=== PATIENT | female | born 1995 | race Caucasian/White ===

== ENCOUNTER 2016-06-01 01:46 | Emergency (ER) | payer OTHER | END 2016-06-01 03:04 | disposition home or self-care (01) | LOC: FER 01:46 | DX: H66.93 Otitis media, unspecified, bilateral (principal); J02.9 Acute pharyngitis, unspecified; F17.200 Nicotine dependence, unspecified, uncomplicated | CPT/HCPCS: 87450; 87804; 87899 ==

== ENCOUNTER 2016-08-10 10:16 | Emergency (ER) | payer OTHER ==
[2016-08-10 10:35] LABS: BILIRUBIN 1+ mg/dL (NEGATIVE); BLOOD NEGATIVE Ery/uL (NEGATIVE); CLARITY CLEAR (CLEAR); COLOR YELLOW (YELLOW); GLUCOSE (U) NORMAL (NORMAL); KETONE (U) NEGATIVE (NEGATIVE); LEUKOCYTES 1+ Leu/uL (NEGATIVE); NITRITE NEGATIVE (NEGATIVE); PROTEIN 1+ mg/dL (NEGATIVE); SPECIFIC GRAVITY 1.025 (1.001-1.030); pH 5.5 (5.0-9.0)
[2016-08-10 10:51] LABS: BACTERIA 2+; URINARY RBC RARE
[2016-08-10 10:54] LABS: BASOPHIL 0.4 % (0-2); EOSINOPHIL 0.6 % (0-5); HCT 36.9 % (37.0-47.0); LYMPHOCYTE 7.1 % (15-48); MCH 29.8 pg (25.0-31.0); MCHC 35.2 g/dL (32.0-36.0); MCV 84.6 fL (78.0-100.0); MONOCYTE 7.4 % (0-12); MPV 12.6 fL (6.0-9.5); NEUTROPHIL 84.5 % (41-80); PLT 115 K/uL (150-400); RBC 4.36 M/uL (4.20-5.40); RDW 12.4 % (11.5-14.0); WBC 7.7 K/uL (4.0-10.5)
== END 2016-08-10 11:38 | disposition home or self-care (01) ==
LOC: FER 10:16
PROVIDERS: Nurse Practitioner
DX: N30.00 Acute cystitis without hematuria (principal); F17.210 Nicotine dependence, cigarettes, uncomplicated; Z90.09 Acquired absence of other part of head and neck
CPT/HCPCS: 36415; 81001; 85025; 86308; 87804; 87899; J1885

== ENCOUNTER 2020-06-21 05:59 | Emergency (ER) | payer OTHER ==
[2020-06-21 06:55] LABS: BILIRUBIN NEGATIVE (NEGATIVE); BLOOD 3+ Ery/uL (NEGATIVE); CLARITY CLOUDY (CLEAR); COLOR RED (YELLOW); GLUCOSE (U) NORMAL (NORMAL); LEUKOCYTES NEGATIVE Leu/uL (NEGATIVE); NITRITE NEGATIVE (NEGATIVE); PROTEIN 1+ mg/dL (NEGATIVE); UROBILINOGEN 0.2 mg/dL (0.2-1.0); pH 7.5 (5.0-9.0)
[2020-06-21 07:00] LABS: BASOPHIL 0 % (0-2); EOSINOPHIL 0.2 % (0-5); HCT 38.9 % (37.0-47.0); HGB 13.4 g/dl (12.5-16.0); LYMPHOCYTE 28.9 % (15-48); MCH 29.1 pg (25.0-31.0); MCHC 34.4 g/dL (32.0-36.0); MCV 84.6 fL (78.0-100.0); MONOCYTE 9.7 % (0-12); MPV 12.2 fL (6.0-9.5); NRBC 0; PLT 175 K/uL (150-400); WBC 5.6 K/uL (4.0-10.5)
[2020-06-21 07:09] LABS: URINARY RBC TNTC
[2020-06-21 07:10] LABS: BACTERIA TRACE
[2020-06-21 07:30] LABS: ALBUMIN 3.8 g/dL (3.4-5.0); BILIRUBIN - TOTAL 0.4 mg/dL (0.2-1.0); BUN/CREAT RATIO (CALC) 25.9 RATIO; CREATININE 0.58 mg/dL (0.51-0.95); GLOBULIN (CALCULATION) 3.4 g/dL; POTASSIUM 4.1 mmol/L (3.5-5.1); TOTAL PROTEIN 7.2 g/dL (6.4-8.2)
[2020-06-21 08:43] LABS: BILIRUBIN NEGATIVE (NEGATIVE); BLOOD NEGATIVE Ery/uL (NEGATIVE); CLARITY CLEAR (CLEAR); COLOR YELLOW (YELLOW); GLUCOSE (U) NORMAL (NORMAL); LEUKOCYTES NEGATIVE Leu/uL (NEGATIVE); NITRITE NEGATIVE (NEGATIVE); PROTEIN NEGATIVE (NEGATIVE); SPECIFIC GRAVITY <=1.005 (1.001-1.030); UROBILINOGEN 0.2 mg/dL (0.2-1.0)
== END 2020-06-21 09:35 | disposition home or self-care (01) ==
LOC: FER 05:59
PROVIDERS: Emergency Medicine
DX: N80.9 Endometriosis, unspecified (principal); N83.202 Unspecified ovarian cyst, left side; N83.201 Unspecified ovarian cyst, right side
CPT/HCPCS: 36415; 80053; 81001; 81003; 83690; 84145; 84703; 85025; J1885; Q9967